=== PATIENT | female | born 1970 | race Caucasian/White ===

== ENCOUNTER → 2024-08-07 | Outpatient (CLI) | payer SELFPAY ==
[2024-08-07 10:35] LABS: Cardiac Risk Estimate 4.5 RATIO (3.7-5.6); Cholesterol 297 mg/dL (132-200); HDL Cholesterol 66 mg/dL (40-60); LDL Cholesterol,Calculated 219 mg/dL (0-130); Triglycerides 62 mg/dL (30-150)
== END | disposition home or self-care (01) ==
PROVIDERS: PCP Physician Assistant; Referring Provider Physician Assistant; Visit Provider Physician Assistant
DX: E78.5 Hyperlipidemia, unspecified (principal)
CPT/HCPCS: 36415; 80061

== ENCOUNTER → 2024-12-19 | Outpatient (CLI) | payer MEDICAID, SELFPAY ==
--- NOTE | 2024-12-19 16:38 | XR_ITS ---
Examination: Abdomen AP single view Technique: AP portable supine abdomen, single view Exam date and time: December 19, 2024 1640 hours INDICATIONS: Constipation beginning one week ago. FINDINGS: Moderate colonic ileus Moderate stool throughout the colon No obstruction No free air Prominent lumbar dextroscoliosis IMPRESSION: Moderate colonic ileus
== END | disposition home or self-care (01) ==
PROVIDERS: PCP Physician Assistant; Referring Provider Physician Assistant; Visit Provider Physician Assistant
DX: K56.7 Ileus, unspecified (principal)
CPT/HCPCS: 74018